=== PATIENT | male | born 1965 | race Caucasian/White ===

== ENCOUNTER 2019-04-27 08:26 | Emergency (ER) | payer OTHER ==
[~2019-04-27] VITALS: Ht 177.8 cm; Wt 70.8 kg
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
[2019-04-27] MEDS ORDERED: LIDOCAINE 1% INJ 50 ML MDV IJ ONE ×2 (08:43→09:00)
[2019-04-27] MEDS ORDERED: TDAP [DIPH/PERTUSSIS/TET] 0.5 ML VIAL IM ONE ×2 (08:44→09:00)
[2019-04-27] MEDS ORDERED: IBUPROFEN 600 MG TABLET PO ONE ×2 (08:44→09:00)
--- NOTE | 2019-04-27 08:45 | NUR ---
Ko, EMT at for wound care.
[2019-04-27] MEDS ORDERED: WATER FOR INJECTION,STERILE 10 ML ONE (08:59)
[2019-04-27] MEDS ORDERED: CEFAZOLIN 1 GM VIAL IM ONE (09:00)
--- NOTE | 2019-04-27 09:35 | NUR ---
Patient verbalized that he wants to kill himself, made aware and will consult crisi team. Will continue to monitor accordingly.
--- NOTE | 2019-04-27 09:48 | NUR ---
urine collected and sent to lab.
[2019-04-27 10:09] LABS: APPEARANCE,URINE Clear (CLEAR); BILIRUBIN,URINE MODERATE (NEGATIVE); BLOOD, URINE Negative Ery/uL (NEGATIVE); COLOR,URINE Yellow (YELLOW); KETONES,URINE Trace (NEGATIVE); LEUKOCYTE ESTERASE ,URINE Negative (NEGATIVE); NITRITE, URINE Negative (NEGATIVE); PROTEIN,URINE 30 mg/dl (NEGATIVE); UGLUCOSE 100 MG/DL mg/dL (NEGATIVE); UROBILINOGEN,URINE >=8.0 EU/dL (0.2)
[2019-04-27 10:10] LABS: BACTERIA,URINE Rare /HPF (None Seen); RBC,URINE 0-2 /HPF (0-2); SQUAMOUS EPITHELIAL CELL,UR Few /HPF (None Seen); WBC,URINE 0-2 /HPF (0-3)
[2019-04-27 10:17] LABS: BASOPHILS # (AUTO) 0.1 /CMM (0.0-0.2); BASOPHILS % (AUTO) 2.2 % (0.0-2.0); EOSINOPHILS % (AUTO) 0.8 % (0.0-6.0); HEMATOCRIT 39 % (39-51); HEMOGLOBIN 14.4 g/dL (13.5-17.5); LYMPHOCYTES # (AUTO) 0.5 /CMM (0.8-4.8); LYMPHOCYTES % (AUTO) 10.8 % (20.0-44.0); MEAN CORPUSCULAR HGB CONC 37 g/dl (31.0-36.0); MEAN CORPUSCULAR VOLUME 97 fL (80-96); MONOCYTES # (AUTO) 0.8 /CMM (0.1-1.30); MONOCYTES % (AUTO) 17.9 % (2.0-12.0); NEUTROPHILS % (AUTO) 68.3 % (43.0-81.0); PLATELET COUNT (AUTO) 63 /CMM (150-450); RED BLOOD CELL COUNT(AUTO) 4.08 MIL/uL (4.5-6.0); WHITE BLOOD COUNT (AUTO) 4.5 K/uL (4.3-11.0)
[2019-04-27 10:23] LABS: CALCIUM, SERUM 8.4 mg/dL (8.5-10.1); CARBON DIOXIDE 28 mmol/L (21-32); CHLORIDE 100 mmol/L (98-107); GLUCOSE 104 mg/dL (74-106); SODIUM SERUM 138 mmol/L (136-145); UREA NITROGEN, BLOOD 20 mg/dL (7-18)
[2019-04-27 10:30] LABS: ALANINE AMINOTRANSFERASE 47 U/L (12-78); ALBUMIN 3.3 g/dL (3.4-5.0); ALCOHOL, BLOOD < 3 mg/dL (0-0); ALKALINE PHOSPHATASE 59 U/L (46-116); ASPARTATE AMINOTRANSFERASE 70 U/L (15-37); BILIRUBIN,DIRECT 1.3 mg/dL (0.0-0.2); BILIRUBIN,TOTAL 4.4 mg/dL (0.2-1.0)
[2019-04-27 10:31] LABS: ACETAMINOPHEN 0 ug/ml (10-30); SALICYLATE 1.4 mg/dL (2.8-20.0)
--- NOTE | 2019-04-27 10:40 | NUR ---
Pagemarianela Ruelas RN for psych eval. ETA within 1hr.
[2019-04-27 11:03] LABS: EOSINOPHILS % (MANUAL) 1 % (0-4); LYMPHOCYTES % (MANUAL) 13 % (16-48); MONOCYTES % (MANUAL) 15 % (0-11.0); NEUTROPHILS % (MANUAL) 71 (42-76)
--- NOTE | 2019-04-27 11:38 | NUR ---
pinky LCWS on site and per yang 4 more hours due to patient is unable to assess at this time. made aware.
--- NOTE | 2019-04-27 12:30 | NUR ---
Patient is resting comfortably in bed with eyes closed. Easily aroused. VSS
--- NOTE | 2019-04-27 14:30 | NUR ---
Patient is resting comfortably in bed with eyes closed. Easily aroused. VSS
--- NOTE | 2019-04-27 14:47 | NUR ---
PINKY 1 HR ETA
[2019-04-27] MEDS ORDERED: POTASSIUM CHLORIDE 20 MEQ TAB.PRT.SR PO ONE ×2 (15:30→16:06)
[2019-04-27] MEDS ORDERED: POTASSIUM CL. PREMIX PERIPHER. 50 ML IV SCH (15:30)
[2019-04-27] MEDS ORDERED: POTASSIUM CL. PREMIX PERIPHER. 50 ML ONE (16:06)
--- NOTE | 2019-04-27 16:30 | NUR ---
CHERYLE, RULING MACHINE FEEDER @ BS FOR EVAL.
--- NOTE | 2019-04-27 16:45 | NUR ---
MEDICATED ORDERED, PT BAILEY WELL. FAMILY @ BS.
--- NOTE | 2019-04-27 18:18 | NUR ---
Patient discharged to home in stable condition. Written and verbal after care instructions given. Patient verbalizes understanding of instruction. IV removed. Catheter intact and site benign. Pressure and 4x4 applied to site. No bleeding noted.
[2019-04-27 18:19] VITALS: BP 135/72
== END 2019-04-27 18:20 | disposition home or self-care (01) ==
LOC: ER 08:28
DX: S51.012A Laceration without foreign body of left elbow, initial encounter (principal); S61.512A Laceration without foreign body of left wrist, initial encounter; S51.812A Laceration without foreign body of left forearm, initial encounter; R45.851 Suicidal ideations; F19.10 Other psychoactive substance abuse, uncomplicated; G62.9 Polyneuropathy, unspecified; F29 Unspecified psychosis not due to a substance or known physiological condition; F12.10 Cannabis abuse, uncomplicated; F11.10 Opioid abuse, uncomplicated; F15.10 Other stimulant abuse, uncomplicated; F14.10 Cocaine abuse, uncomplicated; X78.8XXA Intentional self-harm by other sharp object, initial encounter; Y93.89 Activity, other specified; Y92.89 Other specified places as the place of occurrence of the external cause; Y99.8 Other external cause status
CPT/HCPCS: 12005; 36415; 70450; 71045; 80048; 80076; 80305; 80307; 80329; 81001; 85025; 90471; 90715; 96372; 99284; A6403 ×2; G0480; J0690; J3480; J3490; 81000-TC